=== PATIENT | male | born 1960 | race Caucasian/White ===

== ENCOUNTER 2022-12-25 14:04 | Emergency (ER) | payer OTHER ==
--- OUTSIDE RECORDS SUMMARY | 2022-12-25 14:07 | XMS REPORT | Clinical Summary ---
:1960 Author Organization [facility] MD [facility] Address [address] [place] [address] Care Team Providers Name Role Phone Estella Clark Unavailable Allergies Not on File Medications Not on file Active Problems Not on file Encounters Date Type Specialty Care Team Description 03/01/2022 Telephone Gynecology Rebeca Kelly MD 02/01/2022 Telephone Urology Courtney Muñoz MD after 12/25/2021 Social History Tobacco Use Types Packs/Day Years Used Date Smoking Tobacco: Never Assessed Sex Assigned at Date Recorded Not on file Last Filed Vital Signs Not on file Plan of Treatment Health Maintenance Due Date Last Done Comments COVID-19 Vaccination (#1) 1960 Results Not on fileafter 12/25/2021 Insurance Payer Benefit Plan / Subscriber ID Effective Dates Phone Addre ss Type Group CIGNA MANAGED CIGNA HMO POS [id number] 2021-Present [id number] [place] [address] Care Teams Fireproof Door Maker Relationship Specialty Start Date End Date Estella Clark PCP - External Primary Care 02/01/22 VALENTINE [facility] Provider [address] [place] [phone]
--- OUTSIDE RECORDS SUMMARY | 2022-12-25 14:08 | XMS REPORT | Continuity of Care Document ---
:1960 Author Organization [facility] t Address [address] [place] [address] Care Team Providers Name Role Phone Eduardo KEARNEY, Estella Primary Care Physician Leticia SANDOVAL, Rebeca Alba Attending Clinician [phone] Toni SANDOVAL, Courtney Attending Clinician Suly Lloyd Attending Clinician MAVERICK ANDRADE Attending Clinician Unavailable DAVID DENT Attending Clinician Unavailable DAVID DENT Admitting Clinician Unavailable Payers Payer Name Policy Type Policy Number Effective Date Expiration Date S ource Problems Condition Condition Condition Status Onset Resolution Last Treating Co mments Source Name Details Category Date Date Treatment Clinician Date Prostate Prostate Disease Active [facility] cancer cancer 10-20 00:00: Hospita 00 l Malignant Malignant Disease Active [facility] neoplasm neoplasm 10-13 st of [facility] 00:00: Hospita prostate prostate 00 l Allergies, Adverse Reactions, Alerts Allergy Allergy Status Severity Reaction(s) Onset Inactive Treating Comm ents Source Name Type Date Date Clinician Levoflox Propensi Active Other (See tendoniti Methodi acin ty to Comments) 3-[address] adverse 00:00: Hospita reaction 00 l s to drug Family History Family Member Diagnosis Comments Start Date Stop Date Source Natural mother Cancer [facility] Social History Social Habit Start Date Stop Date Quantity Comments Source Gender identity [facility] Sexual orientation [facility] History of Social 2022-09-03 2022-09-[address] function 00:00:00 00:00:00 Hospital Alcohol intake 2021-12-13 2021-12-13 Current drinker [facility] dist 00:00:00 00:00:00 of alcohol Hospital (finding) Alcohol Comment 2021-10-20 2021-10-20 rarely Worship 00:00:00 00:00:00 Hospital Tobacco use and 2021-08-18 2021-08-18 Smokeless Worship exposure 00:00:00 00:00:00 tobacco non-user Hospital Sex Assigned At [birth year] [facility]00 Skyler Andrade [facility] Center Smoking Status Start Date Stop Date Source Never smoked tobacco [facility] Medications Ordered Filled Start Stop Current Ordering Indication Dosage Frequency Signature Comments Components Source Medication Medication Date Date Medication? Clinician (SIG) Name Name tadalafiL 2021- No 5mg QD Take 1 Metho di (CIALIS) 5 6-21 09-20 tablet (5 st MG tablet 00:00: 04:59 mg total) Ho spita 00 :00 by mouth l daily for 90 days. indomethaci Yes 75mg Take 75 mg Methodi n SR 4-[address] (INDOCIN 11:17: Hospita SR) 75 mg 21 l CR capsule lisinopriL Yes 20mg Q.5D Take 20 mg M ethodi (PRINIVIL) 3-[address] 40 mg 00:00: (two) Hospita tablet 00 times a l day. 0.5 tab (20mg) BID doxycycline Yes 50mg [id number] Take 50 mg Method[facility] (VIBRAMYCIN 2-14 [id number] by mouth 3 st ) 50 MG 00:00: 3W (three) Hospita capsule 00 times a l week. MWF / Rosacea hydroCHLORO Yes 25mg QD Take 25 mg Methodi thiazide 1-[address] (HYDRODIURI 00:00: daily. Hosp amanuel L) 25 MG 00 l tablet amLODIPine 2021- No 5mg Q.5D Take 5 mg M ethodi (NORVASC) 5 1-19 07-19 by mouth 2 s t mg tablet 00:00: 04:59 (two) Hospit a 00 :00 times l daily. Immunizations Ordered Immunization Filled Immunization Date Status Commen ts Source Name Name RICHIE WOODARD 2021-06-09 Completed Methodis t MRNA VACCINATION 00:00:00 [facility] RICHIE KRUEGERBarby 2020-10-26 Completed Methodis t MRNA VACCINATION 00:00:00 [facility] RICHIE KRUEGERBarby 2020-09-28 Completed Method[facility] t MRNA VACCINATION 00:00:00 Hospital Procedures Procedure Date / Time Performed Performing Clinician Sourdiogo e CT ABDOMEN PELVIS WO 2022-01-26 00:00:00 Suly Hayes [facility] CONTRAST Plan of Care Planned Activity Planned Date Details Comments Source Future Scheduled 2022-12-11 Screening for [facility] Test 15:01:12 malignant neoplasm of colon (procedure) [code = 063275432] Future Scheduled 2022-12-11 Screening for [facility] Test 15:01:12 malignant neoplasm of colon (procedure) [code = 630624997] Future Scheduled 2022-12-11 Screening for [facility] Test 15:01:12 malignant neoplasm of colon (procedure) [code = 801325881] Future Scheduled 2022-12-11 Pneumococcal Vaccine: [facility] Test 15:01:12 Pediatrics (0 to 5 Years) and At-Risk Patients (6 to 64 Years) (1 - PCV) [code = Pneumococcal Vaccine: Pediatrics (0 to 5 Years) and At-Risk Patients (6 to 64 Years) (1 - PCV)] Future Scheduled 2022-12-11 Hepatitis C screening [facility] Test 15:01:12 (procedure) [code = 834279245] Future Scheduled 2022-12-11 Screening for [facility] Test 15:01:12 malignant neoplasm of colon (procedure) [code = 690948955] Future Scheduled 2022-12-11 Screening for [facility] Test 15:01:12 malignant neoplasm of colon (procedure) [code = 792629846] Future Scheduled 2022-12-11 SHINGLES VACCINES (1 Met [facility] Test 15:01:12 of 2) [code = SHINGLES VACCINES (1 of 2)] Future Scheduled 2022-12-11 COVID-19 VACCINE (4 - [facility] Test 15:01:12 Moderna series) [code = COVID-19 VACCINE (4 - Moderna series)] Future Scheduled 2022-12-11 INFLUENZA VACCINE Method [facility] Test 15:01:12 [code = INFLUENZA VACCINE] Future Scheduled 2022-08-02 COVID-19 Vaccination [facility] [place] Test 05:41:49 (#1) [code = COVID-19 [facility] Vaccination (#1)] Center Encounters Start End Encounter Admission Attending Care Care Encounter Source Date/Time Date/Time Type Type Clinicians Facility Department ID 2022-03-01 2022-03-01 [facility] [id number] Univers 00:00:00 00:00:00 , Rebeca [id number] i ty of [place] [id number] [place] .[id number] .[id number] [facility] 2022-02-01 2022-02-01 Telephone Toni, [id number] [facility] 00:00:00 00:00:00 Courtney [id number] ity of [id number] [place] .[id number] .[id number] [facility] 2022-01-26 2022-01-26 Orders Freddy [id number] Methodi 00:00:00 00:00:00 Only Suly Flores [id number] [id number] Hospit [id number] .[id number] mulugeta .8 2022-01-10 2022-01-10 [facility]500 12:57:00 23:59:00 [facility] 2021-12-13 2021-12-13 Outpatient [facility] [id number] [place] 00:00:00 00:00:00 DAVID [address] 2021-11-03 2021-11-03 Outpatient [facility] [id number] [place] 00:00:00 00:00:00 DAVID [address] 2021-10-27 2021-10-27 Outpatient [facility] [id number] [place] 00:00:00 00:00:00 DAVID [address] 2021-10-27 2021-10-27 Outpatient MILES, [facility] [id number] [place] 00:00:00 00:00:00 DAVID [address] 2021-10-20 2021-10-22 Outpatient [place], [facility] [id number] [place] 00:00:00 00:00:00 DAVID [address] 2021-10-13 2021-10-13 Outpatient [facility] [id number] [place] 00:00:00 00:00:[address] 2021-10-13 2021-10-13 Outpatient [place], [facility] [id number] 236 [place] 00:00:00 00:00:00 DAVID [address] 2021-09-06 2021-09-06 Outpatient [place], [facility] [id number] [place] 00:00:00 00:00:00 DAVID [address] Results This patient has no known results.
[2022-12-25 14:30] LABS: Absolute Lymphocytes (CBC) 0.9 K/uL (0.7-4.9); Hematocrit 35.6 % (39.6-49.0); Lymphocytes % 15.7 % (15.3-44.8); MCV 90.5 fL (80-100); MPV 7.1 fL (7.6-11.3); RBC Red Blood Cell Count 3.93 M/uL (4.33-5.43)
[2022-12-25 14:50] LABS: Bilirubin Total 0.5 mg/dL (0.2-1.0); Magnesium 1.9 mg/dL (1.6-2.4); Potassium 3.8 mEq/L (3.5-5.1); Protein, Total 7.6 g/dL (6.4-8.2); Troponin High Sensitivity 6.5 pg/mL (<58.9)
--- NOTE | 2022-12-25 15:11 | RAD REPORT ---
EXAM DESCRIPTION: RAD - Chest Single View - 12/25/2022 3:06 pm CLINICAL HISTORY: MALAISE Chest pain. COMPARISON: No comparisons FINDINGS: Portable technique limits examination quality. The lungs are grossly clear. The heart is normal in size. No displaced fractures. IMPRESSION: No acute intrathoracic process suspected.
[2022-12-25] MEDS ORDERED: cloNIDine HCL 0.1 MG TAB ONE (15:51)
--- NOTE | 2022-12-25 17:47 | EDPHYS ---
Physician Documentation [facility] Name: Arun Dc Age: 62 yrs Sex: Male : 1960 Arrival Date: 12/25/2022 Time: 14:04 Bed 20 Private MD: ED Physician Norman Albert HPI: 12/25 14:11 This 62 yrs old Male presents to ER via EMS with complaints of hypertension. kb 14:11 The patient has elevated blood pressure and discovered this at home. Onset: The kb symptoms/episode began/occurred today. Associated signs and symptoms: Pertinent positives: panic attack, Pertinent negatives: chest pain, dizziness, dyspnea, headache, lightheadedness. The patient has not experienced similar symptoms in the past. The patient has not recently seen a physician. Pt reports he mowed the yard this morning, went to the store and started feeling weird. States he felt like he was having a panic attack. Went home and felt like his BP was going up so he took his second dose of lisinopril (normally takes at 1530). States he wasn't feeling any better after walking around the house for a while so he called 911 to get checked out. Historical: - Allergies: 14:10 No Known Allergies; os - PMHx: 14:10 Gout; Hypertensive disorder; os - Immunization history:: Adult Immunizations up to date. - Social history:: Smoking status: unknown. ROS: 14:09 Constitutional: Negative for fever, chills, and weight loss. kb 14:09 All other systems are negative. Exam: 14:09 Constitutional: This is a well developed, well nourished patient who is awake, alert, kb and in no acute distress. Head/Face: Normocephalic, atraumatic. ENT: Moist Mucous membranes Cardiovascular: Regular rate and rhythm with a normal S1 and S2. No gallops, murmurs, or rubs. No pulse deficits. Respiratory: Respirations even and unlabored. No increased work of breathing. Talking in full sentences Abdomen/GI: Soft, non-tender. No distention Skin: Warm, dry with normal turgor. Normal color. MS/ Extremity: Pulses equal, no cyanosis. Neurovascular intact. Full, normal range of motion. Neuro: Awake and alert, GCS 15, oriented to person, place, time, and situation. Moves all extremities. Normal gait. 15:19 ECG was reviewed by the Attending Physician. kb Vital Signs: 14:08 BP 179 / 104; Pulse 92; Resp 17; Temp 98.8; Pulse Ox 99% on R/A; Weight 122.47 kg; os 15:51 BP 189 / 84; Pulse 91; Resp 18; Pulse Ox 99% on R/A; os 18:14 BP 154 / 107; Pulse 72; Resp 16; Pulse Ox 99% on R/A; os MDM: 14:06 Patient medically screened. kb 14:15 Differential diagnosis: hypertensive crisis. Data reviewed: vital signs, nurses notes. kb 14:24 Historians other than the Patient: EMS: [facility]. kb 17:13 ED course: Pt states he is feeling fine and is ready to go home. States he has "whit kb coat syndrome" so his blood pressure is not going to go down while he is here. Will repeat troponin now. Pt denies any chest pain, shortness of breath, dizziness, . 17:31 Consideration of Admission/Observation Escalation of care including kb admission/observation considered. Counseling: I had a detailed discussion with the patient and/or guardian regarding: the historical points, exam findings, and any diagnostic results supporting the discharge/admit diagnosis, lab results, radiology results, the need for outpatient follow up, a engineering teacher, a family practitioner, to return to the emergency department if symptoms worsen or persist or if there are any questions or concerns that arise at home. 12/25 14:07 Order name: CBC with Diff; Complete Time: 14:32 kb 12/25 14:07 Order name: Magnesium; Complete Time: 14:53 kb 12/25 14:07 Order name: NT PRO-BNP; Complete Time: 14:53 kb 12/25 14:07 Order name: Troponin HS; Complete Time: 14:53 kb 12/25 14:07 Order name: CMP; Complete Time: 14:53 kb 12/25 14:07 Order name: CPK; Complete Time: 14:53 kb 12/25 17:12 Order name: Troponin High Sensitivity; Complete Time: 17:45 kb 12/25 14:07 Order name: XRAY Chest (1 view); Complete Time: 15:12 kb 12/25 14:07 Order name: EKG; Complete Time: 14:07 kb 12/25 14:07 Order name: Cardiac monitoring; Complete Time: 14:34 kb 12/25 14:07 Order name: EKG - Nurse/Tech; Complete Time: 14:34 kb 12/25 14:07 Order name: IV Saline Lock; Complete Time: 15:00 kb 12/25 14:07 Order name: Labs collected and sent; Complete Time: 15:00 kb 12/25 14:07 Order name: O2 Per Protocol; Complete Time: 15:00 kb 12/25 14:07 Order name: O2 Sat Monitoring; Complete Time: 15:00 kb 12/25 15:13 Order name: Vital Signs; Complete Time: 15:51 kb EC:19 Rate is 87 beats/min. Rhythm is regular. QRS [place] is Normal. PA interval is normal at kb 196 msec. QRS interval is normal at 82 msec. QT interval is normal at 440 msec. Administered Medications: 15:51 Drug: cloNIDine PO 0.1 mg Route: PO; os 17:14 Follow up: Response: No adverse reaction os Disposition: 12/26 12:03 Co-signature as Attending Physician, Norman Albert MD I reviewed the patient's care rt provided by the Advanced Practice Provider and agree with the diagnosis and treatment plan. Disposition Summary: 12/25/22 17:46 Discharge Ordered Location: Home kb Condition: Stable kb Diagnosis - Essential (primary) hypertension kb Followup: kb - With: Emergency Department - When: As needed - Reason: Worsening of condition Followup: kb - With: Private Physician - When: 2 - 3 days - Reason: Recheck today's complaints, Continuance of care, Re-evaluation by your physician Discharge Instructions: - Discharge Summary Sheet kb - Hypertension, Adult, [id number] kb - Managing Your Hypertension kb Forms: - Medication Reconciliation Form kb - Thank You Letter kb - Antibiotic Education kb - Prescription Opioid Use kb - [email or web address] kb Signatures: Dispatcher [employer] Christy Joseph, HEALTH ECONOMIST-C HEALTH ECONOMIST-Norman Trinidad MD MD rt Xenia Mccray, SHERRY RN os Corrections: (The following items were deleted from the chart) 12/25 14:12 14:10 PMHx: Cancer in situ of urinary bladder; os os
--- NOTE | 2022-12-25 17:47 | ER ---
Nurse's Notes [facility] Name: Arun Dc Age: 62 yrs Sex: Male : 1960 Arrival Date: 12/25/2022 Time: 14:04 Bed 20 Private MD: Diagnosis: Essential (primary) hypertension Presentation: 12/25 14:08 Chief complaint: Patient states: Patient c/o "not feeling right, almost like having a os panic attack. I can feel my BP getting higher and the medication not working right". Coronavirus screen: Vaccine status: Patient reports receiving the 2nd dose of the covid vaccine. na Client denies travel out of the [place] in the last 14 days. Ebola Screen: Patient negative for fever greater than or equal to 101.5 degrees Fahrenheit, and additional compatible Ebola Virus Disease symptoms. Initial Sepsis Screen: Does the patient meet any 2 criteria? No. Patient's initial sepsis screen is negative. Does the patient have a suspected source of infection? No. Patient's initial sepsis screen is negative. Risk Assessment: Do you want to hurt yourself or someone else? Patient reports no desire to harm self or others. Onset of symptoms was December 25, 2022. 14:08 Method Of Arrival: EMS: [facility] os 14:08 Acuity: MANDIE 3 os Triage Assessment: 14:12 General: Appears in no apparent distress. Behavior is calm, cooperative, appropriate os for age. Pain: Denies pain. Neuro: No deficits noted. Cardiovascular: No deficits noted. Respiratory: No deficits noted. Historical: - Allergies: 14:10 No Known Allergies; os - PMHx: 14:10 Gout; Hypertensive disorder; os - Immunization history:: Adult Immunizations up to date. - Social history:: Smoking status: unknown. Vital Signs: 14:08 BP 179 / 104; Pulse 92; Resp 17; Temp 98.8; Pulse Ox 99% on R/A; Weight 122.47 kg; os 15:51 BP 189 / 84; Pulse 91; Resp 18; Pulse Ox 99% on R/A; os 18:14 BP 154 / 107; Pulse 72; Resp 16; Pulse Ox 99% on R/A; os ED Course: 14:06 Patient arrived in ED. kb 14:06 Christy Mathew FNP-C is PHCP. kb 14:06 Norman Albert MD is Attending Physician. kb 14:08 Xenia Mccray, RN is Primary Nurse. os 14:10 Triage completed. os 14:17 Inserted saline lock: 20 gauge in right antecubital area, using aseptic technique. bp Blood collected. 15:08 XRAY Chest (1 view) In Process Unspecified. EDMS Administered Medications: 15:51 Drug: cloNIDine PO 0.1 mg Route: PO; os 17:14 Follow up: Response: No adverse reaction os Outcome: 17:46 Discharge ordered by . kb 18:36 Patient left the ED. os Signatures: Dispatcher [employer] EDMS Christy Mathew FNP-C FNP-Ras Barrios, RN RN Xenia Rider, RN RN os Corrections: (The following items were deleted from the chart) 14:12 14:10 PMHx: Cancer in situ of urinary bladder; os os
[2022-12-25 18:41] VITALS: TEMP 98.8; O2SAT 99
[2022-12-25 18:45] VITALS: BP 154/107
--- NOTE | 2022-12-27 12:35 | EKG ---
Test Date: 2022-12-25 Test Time: 14:23:54 Conference And Event Organiser: BRETT MEASUREMENT RESULTS: Intervals: Rate: 87 GA: 196 QRSD: 82 QT: 366 QTc: 440 [place]: P: 58 GA: 196 QRS: 38 T: 42 INTERPRETIVE STATEMENTS: Normal sinus rhythm Normal ECG No previous ECG available for comparison Electronically Signed On 12-27-22 12:33:24 CDT by Mack Larios
== END 2022-12-25 18:36 | disposition home or self-care (01) ==
LOC: ER 14:04
DX: I10 Essential (primary) hypertension (principal)
CPT/HCPCS: 36415; 71045; 80053; 82550; 83735; 83880; 84484; 85025; 93005; 99284